=== PATIENT | female | born 1950 | race Caucasian/White ===

== ENCOUNTER 2018-06-24 05:12 | Inpatient (IN) ==
[2018-06-17 11:26] LABS: HEMATOCRIT 41.8 % (37.0-47.0); HEMOGLOBIN 13.5 g/dL (12.0-16.0); MCH 30.3 PG (27-31); MCHC 32.3 g/dL (33-37); MCV 93.9 FL (81-99); MPV 10.3 FL (7.4-10.4); RBC 4.45 XMIL (4.2-5.4); RDW 13.1 % (11.5-14.5); WBC 4.48 X1000 (4.8-10.8)
[2018-06-17 11:49] LABS: AGAP 15; BUN 12 mg/dL (8-22); CALCIUM 9.9 mg/dL (8.8-10.2); CHLORIDE 107 mmol/L (98-107); COSMO 293; CREATININE 0.7 mg/dL (0.5-0.9); ESTIMATED GFR > 60; GLUCOSE 106 mg/dL (70-104); POTASSIUM 4.2 mmol/L (3.5-5.1); SODIUM 147 mmol/L (136-145); TCO2 25 mmol/L (25-35)
--- NOTE | 2018-06-17 12:49 | EKG Report ---
Test Performed on : 06/17/2018 10:28:05 AM Test Reason : PAT Blood Pressure : / mmHG Vent. Rate : 085 BPM Atrial Rate : 085 BPM P-R Int : 126 ms QRS Dur : 096 ms QT Int : 366 ms P-R-T Axes : 075 100 077 degrees QTc Int : 435 ms Normal sinus rhythm. with sinus arrhythmia. Possible Left atrial enlargement Rightward axis Incomplete right bundle branch block Borderline ECG When compared with ECG of 02-MAY-2007 14:57, Incomplete right bundle branch block is now present Confirmed by Hayley RAYMOND, Valdo Gonzalez ([id number]) on 06/17/2018 3:27:09 PM
[2018-06-24] MEDS ORDERED: INVANZ 1 GM/NS 1 GM/50 ML IVPB ONE (05:38)
[2018-06-24] MEDS ORDERED: LR 1,000 ML ONE ×2 (05:38→06:18)
[2018-06-24] MEDS: ENTEREG ONE ×2 (05:39→06:16)
[2018-06-24] MEDS ORDERED: SENSORCAINE-MPF 0.5%/EPI 1:200,000 ONE (06:18)
[2018-06-24] MEDS ORDERED: ZOFRAN ODT ONE (06:42)
[2018-06-24] MEDS ORDERED: VERSED ONE (07:08)
[2018-06-24] MEDS ORDERED: FENTANYL ONE (07:08)
[2018-06-24] MEDS ORDERED: DIPRIVAN 1% ONE (07:08)
[2018-06-24] MEDS ORDERED: SODIUM CHLORIDE 0.9% 10 ML ONE (07:10)
[2018-06-24] MEDS ORDERED: XYLOCAINE-MPF 2% ONE (07:10)
[2018-06-24] MEDS ORDERED: NORCURON ONE (07:10)
[2018-06-24] MEDS ORDERED: QUELICIN (DOSE) ONE (07:10)
[2018-06-24] MEDS ORDERED: DECADRON ONE (08:13)
[2018-06-24] MEDS ORDERED: OFIRMEV 1000 MG/ISOTONIC SOLN 1,000 MG/100 ML BOTTLE ONE (08:15)
[2018-06-24 08:17] LABS: URINE SOURCE CATH
[2018-06-24] MEDS ORDERED: EPHEDRINE ONE (08:25)
[2018-06-24] MEDS ORDERED: NEOSTIGMINE ONE (08:31)
[2018-06-24] MEDS ORDERED: ROBINUL ONE (08:31)
[2018-06-24] MEDS ORDERED: ZOFRAN ONE (08:44)
[2018-06-24 08:54] LABS: BILIRUBIN URINE NEGATIVE (NEGATIVE); COLOR YELLOW; GLUCOSE URINE NEGATIVE (NEGATIVE); TURBIDITY URINE HAZY (CLEAR); UR EPITHELIAL CELLS <10 /HPF (<10); URINE BACTERIA 1+ /HPF; URINE RBC <10 /HPF (<10); URINE WBC <10 /HPF (<10)
[2018-06-24 08:55] LABS: BLOOD URINE TRACE (NEGATIVE); KETONE URINE 10 mg/dL (NEGATIVE); LEUKOCYTES URINE NEGATIVE (NEGATIVE); NITRITE URINE NEGATIVE (NEGATIVE); PH URINE 5.5; PROTEIN URINE NEGATIVE (NEGATIVE); SP GRAVITY URINE > 1.030; UROBILINOGEN URINE NORMAL (NORMAL)
[2018-06-24] MEDS ORDERED: D5 1/2 NS + KCL 20 MEQ 1,000 ML ONE (09:33)
--- NOTE | 2018-06-24 09:35 | OPERATIVE NOTE ---
PROCEDURE DATE: 06/24/2018 PROCEDURE PERFORMED: Laparoscopic-assisted resection of the hepatic flexure of the colon with an adenomatous polyp. SURGEON: Dr. Yifan Mayer. LOSS PREVENTION ANALYST: Terrence Nichole RN. PREOPERATIVE DIAGNOSIS: Adenomatous polyp of the hepatic flexure of the colon. POSTOPERATIVE DIAGNOSIS: Adenomatous polyp of the hepatic flexure of the colon. INDICATIONS: A 68-year-old with a 1.5 cm adenomatous polyp of the hepatic flexure that was tattooed by the pipe fitter maintenance. She is here for resection of that segment of the colon. DESCRIPTION OF PROCEDURE: After satisfactory general endotracheal anesthesia achieved, the abdomen was prepped and draped in a sterile fashion. We anesthetized the skin just below the umbilicus, incised the skin and carried our incision down to the fascia. We scored the fascia and introduced the 11 trocar Optiview technique into the abdominal cavity. We insufflated through this trocar. Under direct visualization, we introduced a 5 trocar in the right lower quadrant and an 11 mm trocar in the left upper quadrant. We placed the patient in Trendelenburg and turned her to the left. We then incised some adhesions to the lateral portion of the abdominal wall attached to the colon. We then mobilized the hepatic flexure using the laparoscopic LigaSure immobilizing the hepatic flexure, and we were able to identify the tattooed area on the superior surface of the colon. We mobilized the hepatic flexure adequate to bring it to the anterior abdominal wall. After adequate mobilization, we then flattened the patient. We then made a small incision above the umbilicus and down to the trocar site just below the umbilicus measuring about 4 cm. We opened the fascia and extended that skin incision and then we were able to lift the hepatic flexure of the colon out of the abdominal cavity and laid it on the abdominal wall. We identified the tattooed area. We incised the adhesions to allow adequate extension of the hepatic flexure. We then made a small hole in the mesentery on each side of the tattooed area and introduced a AJMMIE 60 blue cartridge stapler and stapled and divided the colon on each side of the tattooed portion. We then divided the mesentery all the way to its apex using the LigaSure. After removing that hepatic flexure, I then opened a piece of bowel and identified the adenomatous polyp inside. It was completely removed. It was soft. So, we had to staple the ends of colon outside the abdominal wall. We laid them [id number], placed a 3-0 silk to approximate them side- by-side. Then cut off the corners of the staple line and then introduced a JAMMIE 60 Stapler and did a [id number] stapled anastomosis. We then over sewed the staple line with interrupted 3-0 silks in a Lembert fashion. We placed 3-0 silks in the mesentery as well. We then changed gloves at this point, and replaced the stapled anastomosis back into the abdominal cavity. We closed the peritoneum with 2-0 chromic. We closed the fascia in 2-0 Polysorb figure-of- eight stitches. We then re-insufflated and inspected the anastomosis inside. Hemostasis was satisfactory. No other intra-abdominal pathology was identified. We then desufflated and removed our trocars. We closed the fascia in the left upper quadrant trocar site with 2-0 Polysorb. We did the same for the 5 trocar sites on the right lower quadrant. We then closed the skin at each incision with 4-0 Polysorb subcuticular stitches. Sterile OpSites were applied. She tolerated it well. Estimated blood loss was 5 mL she was sent to the recovery room in satisfactory condition. cc: Yifan Mayer MD MTDWilfredo
[2018-06-24] MEDS ORDERED: DENOSUMAB 60 MG SQ SCH (11:03)
[2018-06-24] MEDS ORDERED: NORCO-10 PO PRN (11:03)
[2018-06-24] MEDS ORDERED: DILAUDID IV PRN (11:03)
[2018-06-24] MEDS ORDERED: TEMOVATE 0.05% CREAM TOP PRN (11:03)
[2018-06-24] MEDS: D5 1/2 NS + KCL 20 MEQ 1,000 ML IV SCH (11:11)
[2018-06-24] MEDS: ZOFRAN IV PRN ×2 (11:11→17:39)
--- NOTE | 2018-06-24 15:57 | GENERAL SURGERY PROGRESS NOTE ---
DATE: 06/24/2018 TIME SEEN: 3:15 p.m. SUBJECTIVE: She is awake and alert, comfortable. Denying any significant pain. Her hemodynamics are good. She has taken ice chips satisfactorily. PLAN: The plan will be to give her clear liquids in the morning. cc: Yifan Mayer MD
[2018-06-24] MEDS: CITRACAL + D PO SCH (20:58)
[2018-06-24] MEDS: LOVENOX SUBQ SCH (20:58)
[2018-06-24] MEDS: OPTIVAR 0.05% OPH SOLUTION BOTH EYES SCH (20:59)
[2018-06-24] MEDS: PERIDEX MT SCH (20:59)
[2018-06-25] MEDS: D5 1/2 NS + KCL 20 MEQ 1,000 ML IV SCH (02:15)
[2018-06-25 07:47] LABS: HEMATOCRIT 34.4 % (37.0-47.0); HEMOGLOBIN 11.1 g/dL (12.0-16.0); IMM GRAN# 0.02 X1000 (0.0-0.04); IMM GRAN% 0.2 % (0.0-0.5); LYMPH# 0.95 X1000 (1.2-3.4); LYMPH% 9.4 % (20.5-51.1); MCH 30.3 PG (27-31); MCHC 32.3 g/dL (33-37); MONO# 0.66 X1000 (0.11-0.59); MONO% 6.5 % (1.7-9.3); MPV 10.9 FL (7.4-10.4); NEUT# 8.53 X1000 (1.4-6.5); NEUT% 83.9 % (42.2-75.2); PLT 234 X1000 (130-400); RBC 3.66 XMIL (4.2-5.4); WBC 10.16 X1000 (4.8-10.8)
[2018-06-25 08:20] LABS: AGAP 8; BUN 7 mg/dL (8-22); CALCIUM 8.1 mg/dL (8.8-10.2); CHLORIDE 107 mmol/L (98-107); COSMO 278; CREATININE 0.6 mg/dL (0.5-0.9); ESTIMATED GFR > 60; GLUCOSE 140 mg/dL (70-104); POTASSIUM 4.8 mmol/L (3.5-5.1); SODIUM 139 mmol/L (136-145); TCO2 24 mmol/L (25-35)
[2018-06-25] MEDS: PERIDEX MT SCH ×2 (08:26→23:21)
[2018-06-25] MEDS: PRINIVIL PO SCH (08:26)
[2018-06-25] MEDS: ENTEREG PO SCH ×2 (08:27→23:21)
[2018-06-25] MEDS: OPTIVAR 0.05% OPH SOLUTION BOTH EYES SCH ×2 (08:29→23:22)
[2018-06-25] MEDS: CLARITIN PO SCH (08:29)
[2018-06-25] MEDS ORDERED: D5 1/2 NS + KCL 20 MEQ 1,000 ML IV SCH (12:15)
[2018-06-25] MEDS: CITRACAL + D PO SCH (23:21)
[2018-06-25] MEDS: LOVENOX SUBQ SCH (23:21)
[2018-06-26 07:07] LABS: BASO# 0.01 X1000 (0.0-0.2); BASO% 0.1 % (0.0-0.8); EOS# 0.01 X1000 (0.0-0.7); EOS% 0.1 % (0.0-10.0); HEMATOCRIT 37.8 % (37.0-47.0); HEMOGLOBIN 12.2 g/dL (12.0-16.0); LYMPH# 1.86 X1000 (1.2-3.4); LYMPH% 24.2 % (20.5-51.1); MCH 30.7 PG (27-31); MCHC 32.3 g/dL (33-37); MONO# 0.64 X1000 (0.11-0.59); MONO% 8.3 % (1.7-9.3); MPV 10.6 FL (7.4-10.4); NEUT# 5.16 X1000 (1.4-6.5); NEUT% 67.3 % (42.2-75.2); PLT 220 X1000 (130-400); RBC 3.98 XMIL (4.2-5.4); RDW 13.3 % (11.5-14.5); WBC 7.68 X1000 (4.8-10.8)
[2018-06-26] MEDS: ENTEREG PO SCH ×2 (08:15→22:25)
[2018-06-26] MEDS: PERIDEX MT SCH ×2 (08:15→22:25)
[2018-06-26] MEDS: CLARITIN PO SCH ×2 (08:15→11:02)
[2018-06-26] MEDS: PRINIVIL PO SCH ×2 (08:15→09:00)
[2018-06-26] MEDS: OPTIVAR 0.05% OPH SOLUTION BOTH EYES SCH (11:02)
[2018-06-26] MEDS ORDERED: SALINE LOCK IV FLUID XX ONE (14:41)
--- NOTE | 2018-06-26 15:03 | GENERAL SURGERY PROGRESS NOTE ---
DATE: 06/26/2018 SUBJECTIVE: Ms. Harkins is doing generally well. OBJECTIVE: Vital Signs: She is afebrile. Heart rate 88, blood pressure 145/ 62. Exam: Bowel sounds are present. She denies any flatus, however. She has had a little burping, but no nausea. PLAN: The plan is to give her solid food tonight and then hopefully we will be able to discharge her tomorrow if her bowels go ahead and open. I am pleased with her progress. cc: Yifan Mayer MD [facility]
[2018-06-26] MEDS: CITRACAL + D PO SCH ×2 (22:25→22:26)
[2018-06-26] MEDS: LOVENOX SUBQ SCH (22:25)
[2018-06-27] MEDS: PERIDEX MT SCH (09:18)
[2018-06-27] MEDS: ENTEREG PO SCH (09:18)
[2018-06-27] MEDS: PRINIVIL PO SCH (09:18)
[2018-06-27] MEDS: CLARITIN PO SCH ×2 (09:18→09:24)
[2018-06-27] MEDS: OPTIVAR 0.05% OPH SOLUTION BOTH EYES SCH (09:19)
[2018-06-27 12:36] VITALS: BP 125/52
--- NOTE | 2018-06-27 14:44 | GENERAL SURGERY PROGRESS NOTE ---
DATE: 06/27/2018 SUBJECTIVE: She did eat solid food. Her bowels have moved. She is passing some flatus. Her wounds look fine. We will discharge her today. We discussed her wound care. She will return to see me in the office in 5 days. We will write her something for discomfort. cc: Yifan Mayer MD
== END 2018-06-27 14:54 | disposition home or self-care (01) | DRG 331 ==
LOC: SURHOLD 05:12 → 4N 10:33
PROVIDERS: ADMIT Surgery; ATTEND Surgery
CPT/HCPCS: 80048; 81001; 85025; 85027; 88305; 88313; 93005; 93010; 94761; 94799; A9270; J0131; J0330; J1100; J1335; J1650; J2250; J2405; J3010; J3480; J7120